=== PATIENT | female | born 1965 | race Caucasian/White ===

== ENCOUNTER → 2018-04-22 | Outpatient (CLI) | payer BC | LOC: M RAD 08:56 | DX: S83.231A Complex tear of medial meniscus, current injury, right knee, initial encounter (principal); X58.XXXA Exposure to other specified factors, initial encounter; Y92.9 Unspecified place or not applicable; M22.41 Chondromalacia patellae, right knee; M25.461 Effusion, right knee; M71.21 Synovial cyst of popliteal space [Baker], right knee | CPT/HCPCS: 73721 ==

== ENCOUNTER → 2018-12-28 | Outpatient (REF) | payer BC, OTHER ==
[2018-12-28 12:11] LABS: POTASSIUM SERUM 4.1 MEQ/L (3.5-5.1)
[2018-12-28 12:12] LABS: HEMATOCRIT 46.1 % (36.0-47.0); HEMOGLOBIN 14.8 g/dl (12.0-15.5); MEAN CORPUSCULAR HGB CONC 32.1 g/dl (32.0-36.5); MEAN CORPUSCULAR VOLUME 99.8 fl (80.0-96.0); PLATELET COUNT, AUTOMATED 320 10^3/uL (150-450); RED BLOOD COUNT 4.62 10^6/uL (4.00-5.40); WHITE BLOOD COUNT 11.7 10^3/uL (4.0-10.0)
[2018-12-28 12:21] LABS: INR 0.99; PROTHROMBIN TIME 13.2 SECONDS (12.1-14.4)
== END ==
LOC: M LABDRAW1 08:29
PROVIDERS: ATTEND Orthopaedic Surgery Sports Medicine
DX: Z01.818 Encounter for other preprocedural examination (principal)

== ENCOUNTER → 2019-01-04 | Outpatient (REF) | payer OTHER ==
[~2019-01-04] MED LIST: CVS1CAP2 PO; DEPO104I SC; LISI-542 PO; NEXI20CA33 PO; NO ITAB PO; SUPE600T4 PO
[2019-01-04 16:17] LABS: BLOOD UREA NITROGEN 24 MG/DL (7-18); CALCIUM LEVEL 9.6 MG/DL (8.5-10.1); CARBON DIOXIDE LEVEL 26 MEQ/L (21-32); CHLORIDE LEVEL 112 MEQ/L (98-107); CREATININE FOR GFR 0.91 MG/DL (0.55-1.30); GLOMERULAR FILTRATION RATE > 60.0 (>51); GLUCOSE, FASTING 97 MG/DL (70-100); PHOSPHORUS LEVEL 3.4 MG/DL (2.5-4.9); POTASSIUM SERUM 4.3 MEQ/L (3.5-5.1); SODIUM LEVEL 142 MEQ/L (136-145)
== END ==
LOC: M SFHCPLAZ 13:41
PROVIDERS: ATTEND Physician Assistant
DX: Z01.818 Encounter for other preprocedural examination (principal)

== ENCOUNTER 2019-01-16 10:47 | Day surgery (SDC) | payer OTHER, BC ==
[~2019-01-16] VITALS: Ht 157.5 cm; Wt 71.8 kg
[~2019-01-16 10:47] MED LIST changes: +LIDOCAINE 1% MDV 20ML VIAL SQ PRN; +LR 1,000 ML IV ONE
[2019-01-16] MEDS ORDERED: ROPIvacaine 0.5% 30 ML INJECTION (J2795 PER 1MG) ONE (10:48)
[2019-01-16] MEDS ORDERED: EPINEPHrine INJ 1 MG/ML 1ML AMP ONE (10:48)
[2019-01-16] MEDS ORDERED: dexameTHASONE 10 MG/1 ML VIAL PRES.FREE (J1100) ONE (10:48)
[2019-01-16 11:28] LABS: URINE PREG TEST NEGATIVE (NEGATIVE)
[2019-01-16] MEDS ORDERED: MIDAZOLAM INJ 2 MG/2 ML VIAL (J2250) As Ordered ONE ×2 (12:52→13:17)
[2019-01-16] MEDS ORDERED: fentaNYL 100 MCG/2 ML INJECTION (J3010) As Ordered ONE ×2 (12:52→13:17)
[2019-01-16] MEDS ORDERED: EPINEPHrine 1MG/ML INJ 30ML MD-VIAL As Ordered ONE (13:13)
[2019-01-16] MEDS ORDERED: LIDOCAINE 1% SDV INJ 30 ML VIAL As Ordered ONE (13:13)
[2019-01-16] MEDS ORDERED: PROPOFOL 200 MG/20 ML VIAL As Ordered ONE ×2 (13:15→13:16)
[2019-01-16] MEDS ORDERED: LIDOCAINE 2% INJ 100 MG/5 ML SDV (FOR ANES.) As Ordered ONE (13:16)
[2019-01-16] MEDS ORDERED: ROCURONIUM BROMIDE 50 MG/5 ML VIAL As Ordered ONE (13:16)
[2019-01-16] MEDS ORDERED: dexameTHASONE 4 MG/ML 1ML VIAL (J1100) As Ordered ONE (13:16)
[2019-01-16] MEDS ORDERED: ONDANSETRON 4MG/2ML VIAL (J2405) As Ordered ONE ×2 (13:16→18:21)
[2019-01-16] MEDS ORDERED: SUGAMMADEX SODIUM 500 MG/5 ML VIAL (BRIDION) As Ordered ONE (13:23)
[2019-01-16] MEDS ORDERED: MIDAZOLAM INJ 2 MG/2 ML VIAL (J2250) IV ONE (13:45)
[2019-01-16] MEDS ORDERED: fentaNYL 100 MCG/2 ML INJECTION (J3010) IV ONE (13:45)
[2019-01-16] MEDS ORDERED: fentaNYL 100 MCG/2 ML INJECTION (J3010) IV PRN ×2 (13:45→19:15)
[2019-01-16] MEDS ORDERED: HYDROmorphone HCL 2 MG/ML 1ML VIAL (J1170) As Ordered ONE (16:18)
[2019-01-16] MEDS ORDERED: ePHEDrine SULFATE 25 MG/5 ML(5MG/ML) SYRINGE As Ordered ONE (16:29)
[2019-01-16] MEDS ORDERED: PHENYLephrine HCL 500 MCG/5 ML (100MCG/ML) SYRINGE (J2370) As Ordered ONE (16:29)
[2019-01-16] MEDS ORDERED: LABETALOL HCL 100 MG/20 ML VIAL As Ordered ONE (17:04)
[2019-01-16] MEDS ORDERED: ceFAZolin 2 GM/D5W 50 ML IV BAG (J0690 PER 500MG) As Ordered ONE (18:13)
[2019-01-16] MEDS ORDERED: MORPHINE 4 MG/ML 1ML VIAL/SYRINGE (J2270) IV PRN (19:15)
[2019-01-16] MEDS ORDERED: ACETAMINOPHEN TAB 650MG DOSE (2X325MG) PO PRN (19:15)
[2019-01-16] MEDS ORDERED: ONDANSETRON 4 MG TAB (S0181) PO PRN (19:15)
[2019-01-16] MEDS ORDERED: LR 1,000 ML IV SCH ×2 (19:15)
[2019-01-16] MEDS ORDERED: PERCOCET 5MG/325MG TAB PO PRN ×2 (19:15)
[2019-01-16] MEDS ORDERED: ONDANSETRON 4MG/2ML VIAL (J2405) IV PRN ×2 (19:15)
[2019-01-16] MEDS ORDERED: METOCLOPRAMIDE INJ 10MG/2ML VIAL (J2765) IV PRN (19:15)
[2019-01-16 21:07] VITALS: BP 112/55
--- NOTE | 2019-01-16 21:29 | RO ---
DATE OF PROCEDURE: 01/16/2019 PREOPERATIVE DIAGNOSIS: Right shoulder massive rotator cuff tear. POSTOPERATIVE DIAGNOSIS: Right shoulder massive rotator cuff tear. PLANNED PROCEDURE: Right shoulder arthroscopy, plus/minus rotator cuff repair, plus/minus superior capsular reconstruction. PROCEDURE PERFORMED: Right shoulder arthroscopy and superior capsular reconstruction. SURGEON: Chandan Rubio MD PAYROLL AUDITOR: ORGAN GRINDER: Myra. TYPE OF ANESTHESIA: General anesthetic plus block. OPERATIVE PREAMBLE: This 53-year-old female had weakness and pain, especially for forward elevation. She had a previous rotator cuff repair. MRI showed a large massive retracted supraspinatus tendon tear to the level of the glenoid. We talked about attempted repair versus partial repair or proceeding with superior capsular reconstruction. We talked about the pros and cons, the risks and benefits of going ahead with the surgery, which I reiterated in preoperative holding. I marked her right shoulder. She had no further questions. DESCRIPTION OF PROCEDURE: The patient was brought to the operating theatre, administered general anesthetic. They placed right lateral decubitus with the aid of a beanbag positioner. Two grams IV Ancef were administered and redosed approximately 3-1/2 to 4 hours into the case. The patient and site was confirmed with preoperative time-out. The right upper extremity was prepped and draped in the usual sterile fashion. We used a traction setup with 15 pounds of longitudinal in-line traction with the arm in about 30 degrees of abduction. Once the prep solution was thoroughly dried, I marked out my portal sites and the superficial anatomy. I began by making a posterior working portal, arthroscopic. I examined the glenoid and the humeral head. It had minimal cartilage loss. Superiorly, there was massive retracted rotator cuff tear. The rotator interval appeared scarred down. Infraspinatus/teres minor appeared intact. Subscapularis appeared intact but again scarred into the rotator interval. No obvious upper border tears. Debridement was performed. Biceps tendon was not intact and already gone. I attempted to mobilize to superior and then resurface the remaining supraspinatus tendon at the level of the glenoid. I had attempted longitudinal traction on this to assess the reparability, but it was only able to about barely come to the medial aspect of the humerus on quite a bit of tension. I decided to proceed with the superior capsular reconstruction. I debrided anteriorly and posteriorly, ensured to keep the infraspinatus and subscapularis intact. I debrided a 1 cm cuff of tissue off the superior surface of the glenoid from 3 to 9 o'clock ensuring to stay within at least 1-1/2 cm of the articular surface of the glenoid. I then burred this surface creating bleeding bed. I then also prepared the lateral footprint on the humeral head. I used cautery and burs, as well as shaving instruments. I prepared this down to bleeding bed. There were two small suture tails that I removed as well from the previous anchors. I then placed percutaneously two 3.0 mm Knotless SutureTak anchors at approximately the 2 o'clock and 12 o'clock position of the glenoid. These were solidly in place. I then placed another 3.0 mm SutureTak suture anchor at approximately the 10:30 position on the glenoid. I then placed my medial row on the humerus side. I used 4.75 mm SwiveLock anchors from the SpeedBridge kit with FiberTape sutures. I placed one anteriorly one posteriorly. Placed this at the articular margin. I ensured that the bite was solid and the sutures were strong. I then used the measuring device to measure between the sutures to plan out the SCR graft. Between the glenoid anchors was 15 mm and 20 mm from anterior to posterior. Between the humerus anchors was approximately 20 mm, and from medial to lateral from the anterior glenoid to the medial humeral row was 30 mm anteriorly and 35 mm posteriorly. I planned my graft per that and marked it. I then used the punch to punch my two lateral graft holes for the planned medial row fixation on the humeral side. I then passed the suture limbs out a lateral portal. I had also established an anterior working portal. I passed the stitches from the glenoid side in a horizontal mattress fashion at the predetermined savage on the graft. I had cut the graft to have approximately 1 cm of lateral overlap for the planned lateral row. I then passed the stitch from the medial rows through the anchor. I did this in the usual knotless fashion. Unfortunately the very posterior anchor failed and pulled out while performing this, so we replaced it with a 3.9 mm Corkscrew knotless anchor and performed the same procedure to make a horizontal row stitch. We then passed the limbs of the FiberTape sutures for the medial row from the undersurface to the outer surface of the graft. I ensured that the shiny side of the graft was face down and the basement membrane side was face up or superior. I placed a PassPort cannula prior to passing the stitches out laterally, and I tried to pass the graft through this, but unfortunately it got stuck. We had cut the PassPort from around the graft and then passed the graft in after it was removed. We seated the graft on the glenoid side. Next, we turned our attention to the lateral side. Placed one interval closure using #2 FiberWire stitch in the posterior aspect of the graft into the infraspinatus tendon. We then crossed over the sutures to perform the SpeedBridge technique. We then crossed these over to a posterior 4.75 mm SwiveLock anchor. We then performed the same technique anteriorly. Unfortunately, one of the suture limbs was bound up in the graft and as such, we passed one other FiberTape suture anteriorly and then used this to secure the graft anteriorly. Final arthroscopy pictures were taken. Graft was confirmed to be in the proper position. Shoulders was thoroughly irrigated. Scope was removed. The portal sites were closed with interrupted subcutaneous #2-0 Monocryl suture. Steri-Strips were applied. 20 mL of 1% lidocaine was infiltrated in and around the portal sites. Steri-Strips were applied followed by a sterile 4 x8 gauze, ABD dressing and cloth tape. The patient was placed into a sling. The graft was tensioned with the arm in 20 degrees of abduction and 20 degrees of flexion before again final tensioning. The patient was woke up from the general anesthetic, transferred off the operating table and taken to the postanesthetic care unit in stable condition. All sponge count, needle count, and measurement counts were correct, and there were no complications. Estimated blood loss was [address] Ralph Grady the child and youth program assistant for the case was instrumental in holding the arthroscope, passing and grasping sutures, and assisting with graft passage and anchor insertion. PLAN: The patient is to be discharged home tonight if she is comfortable and to followup in the office in 2 weeks time. JULIUS
== END 2019-01-16 21:40 | disposition home or self-care (01) ==
LOC: M SDC 10:47
PROVIDERS: ATTEND Orthopaedic Surgery Sports Medicine
DX: M75.121 Complete rotator cuff tear or rupture of right shoulder, not specified as traumatic (principal); I10 Essential (primary) hypertension; K21.9 Gastro-esophageal reflux disease without esophagitis; Z79.899 Other long term (current) drug therapy; F17.210 Nicotine dependence, cigarettes, uncomplicated
CPT/HCPCS: 29807; 29827; 64415; 84703; C1713; J0690; J1100; J1170; J2250; J2370; J2405; J2795; J3010; Q4125

== ENCOUNTER → 2019-04-25 | Outpatient (REF) | payer OTHER ==
[~2019-04-25] MED LIST changes: -LIDOCAINE 1% MDV 20ML VIAL SQ PRN; -LR 1,000 ML IV ONE
== END ==
LOC: M SFHCPLAZ 16:20
PROVIDERS: ATTEND Dermatology
DX: C44.310 Basal cell carcinoma of skin of unspecified parts of face (principal)

== ENCOUNTER → 2019-06-29 | Outpatient (REF) | payer BC | LOC: M SFHCPLAZ 10:19 | PROVIDERS: ATTEND Dermatology | DX: D49.2 Neoplasm of unspecified behavior of bone, soft tissue, and skin (principal) ==

== ENCOUNTER → 2019-08-22 | Outpatient (CLI) | payer OTHER ==
--- NOTE | 2019-08-29 10:47 | REP ---
MRI RIGHT SHOULDER WITHOUT CONTRAST: HISTORY: Encounter for other orthopedic aftercare. The patient reports increased pain and inability to lift arm. Injury in a fall 1 year ago. Status post right shoulder surgery. August 24, 2012 the patient underwent arthroscopy of the right shoulder with arthroscopic repair of the rotator cuff tear, debridement of the labrum, biceps tenotomy, subacromial decompression with acromioplasty, and distal clavicle excision. On January 16, 2019 the patient underwent right shoulder arthroscopy with superior capsular reconstruction procedure. Comparison MRI study has been retrieved from an outside institution dated November 30, 2018. Comparison radiographs are retrieved from September 09, 2018. TECHNIQUE: Axial, oblique coronal, and oblique sagittal imaging planes utilized. T1- and T2-weighted scans are included with and without fat saturation. MRI FINDINGS: There are multiple orthopedic pin tracks in the humeral head from the previous surgical repairs. Glenohumeral and acromioclavicular joint alignment is normal. There is intact low T1- low T2 signal intensity material in the subacromial space along the course of the supraspinatus tendon consistent with superior capsular repair. There is atrophy of the supraspinatus muscle as previously noted. Subacromial space measures 6 mm, previously acromial space was obliterated. The infraspinatus tendon is intact. There is some fluid adjacent to it posteriorly. The subscapularis tendon is diffusely attenuated and there is focal T2 hyperintensity at the musculotendinous junction of the subscapularis which may be a focal tear. The biceps tendon appears attenuated as well and is not well seen in the region of its genu. A magnetic field susceptibility artifact is seen to some degree. There is fluid in the acromioclavicular joint with some superior hypertrophy. Inferolateral acromion process spurring is noted. There is osteoarthritic spurring at the inferior margin of the humeral head and moderate to glenohumeral chondromalacia is observed. The superior glenoid labral cartilage is not well seen. There is fraying of the anterior posterior cartilaginous glenoid labral surfaces. IMPRESSION: Extensive postoperative changes with multiple surgical anchors in the humeral head. There is a intact appearing superior capsule repair along the course of the supraspinatus. Supraspinatus muscle atrophy is seen. Postoperative changes in the AC joint with some residual hypertrophy and fluid. 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 There is attenuation of the biceps and subscapularis tendons and there is focal fluid at the musculotendinous junction for the subscapularis. Electronically Signed by Christopher Worley MD 08/29/2019 03:27 P
== END ==
LOC: M RAD 15:29
PROVIDERS: ATTEND Orthopaedic Surgery Sports Medicine
DX: Z47.89 Encounter for other orthopedic aftercare (principal); M19.011 Primary osteoarthritis, right shoulder; M25.411 Effusion, right shoulder

== ENCOUNTER → 2024-01-31 | Outpatient (CLI) | payer OTHER ==
[~2024-01-31] MED LIST changes: -LISI-542 PO; +LISI5TAB11 PO
[2024-01-31 12:24] LABS: HEMATOCRIT 47.9 % (36.0-47.0); HEMOGLOBIN 15.8 g/dl (12.0-15.5); MEAN CORPUSCULAR HEMOGLOBIN 32.5 pg (27.0-33.0); MEAN CORPUSCULAR VOLUME 98.6 fl (80.0-96.0); PLATELET COUNT, AUTOMATED 320 10^3/uL (150-450); RED BLOOD COUNT 4.86 10^6/uL (4.00-5.40); WHITE BLOOD COUNT 11.6 10^3/uL (4.0-10.0)
[2024-01-31 12:35] LABS: ERYTHROCYTE SEDIMENTATION RATE 14 mm/hr (0-30); INR 0.95; PROTHROMBIN TIME 12.4 SECONDS (12.5-14.5)
[2024-01-31 12:49] LABS: ALBUMIN 4.1 G/DL (3.2-5.2); ALKALINE PHOSPHATASE 87 U/L (46-116); ALT/SGPT 43 U/L (7.0-40); AST/SGOT 15 U/L (<34); BILIRUBIN,TOTAL 0.5 MG/DL (0.3-1.2); BLOOD UREA NITROGEN 23 MG/DL (9-23); CALCIUM LEVEL 9.5 MG/DL (8.3-10.6); CARBON DIOXIDE LEVEL 28 MMOL/L (20-31); CHLORIDE LEVEL 109 MMOL/L (98-107); CREATININE FOR GFR 0.84 MG/DL (0.55-1.30); GLOMERULAR FILTRATION RATE > 60.0 (>45); GLUCOSE, FASTING 105 MG/DL (74-106); POTASSIUM SERUM 4.6 MMOL/L (3.5-5.1); SODIUM LEVEL 142 MMOL/L (136-145); TOTAL PROTEIN 6.9 G/DL (5.7-8.2)
== END ==
LOC: M CLY 08:29
PROVIDERS: ATTEND Orthopaedic Surgery
DX: Z01.818 Encounter for other preprocedural examination (principal); M17.12 Unilateral primary osteoarthritis, left knee